=== PATIENT | male | born 1960 | race Caucasian/White ===

== ENCOUNTER 2024-10-15 20:47 | Emergency (ER) | payer OTHER, SELFPAY ==
[2024-10-15 20:49] VITALS: BP 158/96
--- NOTE | 2024-10-16 01:06 | ED.SKININJ ---
HPI-Injury
General
Chief Complaint: Bite
Source: patient
Exam Limitations: none
Time Seen by Provider: 10/15/24 23:49
Nursing documentation reviewed up to this point in time: agreed with
History of Present Illness-Injury
Is this injury a work related problem?: No
Is pt an associate of [facility]?: No
Initial Injury comments:
64-year-old male presenting to the emergency department today with concerns of lesion to the left lower soliman over the past 3 days. Initially had a small amount of pus come out now some redness and warmth to the area no significant pain. Currently
started Augmentin today for dental issue.
Review of Systems
Review of Systems
Allergies reviewed?: Yes
All Other Systems: ROS reviewed and negative except as documented in HPI and ROS
Phy Exam
Physical Exam
Physical Exam:
GENERAL: Alert , in no apparent distress
EYE: pupils equal and reactive
NECK: Supple, no significant adenopathy.
ENT: o/p clr, mmm.
CARDIAC: Regular rate and rhythm .
LUNGS: Clear breath sounds bilaterally, no acute respiratory distress, no wheezes/rales/rhonchi
ABDOMEN: Soft, without focal tenderness, no r/g, no cvat
NEUROLOGICAL: Alert and oriented, no focal neuro deficits
SKIN: Redness swelling to the left lower extremity to the distal anterior soliman roughly 3 cm in diameter. Fluctuant induration to the central portion no spontaneous drainage warm and dry, skin intact.
MUSCULOSKELETAL: No edema, well perfused.
PSYCH: Normal and appropriate interaction.
Course
Vital Signs
Initial and Last Documented VS:
Initial Vital Signs
Temp Pulse Resp BP Pulse Ox
98 F 78 20 158/96 98
10/15/24 20:49 10/15/24 20:49 10/15/24 20:49 10/15/24 20:49 10/15/24 20:49
Last Documented Vital Signs
Temp Pulse Resp BP Pulse Ox
98 F 61 18 160/101 99
10/15/24 20:49 10/16/24 01:07 10/16/24 01:07 10/16/24 01:07 10/16/24 01:07
Procedures
Incision/Drainage/Joint Aspiration
Left Anterior Distal Leg:
Preparation: cleaned with alcohol wipe
Type of procedure: incise and drain
Nature of site: abscess
Description of abscess: greater than 3cm
Loculations broken up: Yes
How much fluid was obtained?: scant amount
Fluid description: purulent
Treatment: left open for drainage
MDM/Problems Addressed
MDM/Problems Addressed:
64-year-old male presenting to the emergency department today with concerns of a lesion to the left lower extremity consistent with a small abscess. This was drained here otherwise tolerated well. Already on antibiotics. Stable for outpatient
manage return precautions given.
*Critical Care Note
Total Time (30-74mins, 75-104mins- exclusive of procedures): Not Applicable
ED Attending Note
-
Portions of this chart may have been created with voice recognition software.� Occasional wrong word or��sound alike� substitutions may have occurred due to the inherent limitations of voice recognition software.
Discharge Plan
Departure
Patient Disposition: Home (Routine Discharge)
Date of Disposition: 10/16/24
Time of Disposition: 01:09
Patient with high blood pressure during this ER visit?: No
Condition: Good
Covid-19: Not Applicable
Discharge Problem:
Abscess of leg
Instructions: Cellulitis (Skin Infection), Child (DC)
Referrals:
Sean Brunson MD [Family Provider, Family Practice]
Activity Restrictions/Additional Instructions:
You came to the emergency department today with concerns of a lesion to your left leg. This is likely an infection. Please take your antibiotic and use warm compresses. Return for any worsening, new or concerning symptoms.
Interventions
Interventions:
*Risk Screen - Suicide Last Done: 10/15/24 20:49
*General Assessment Last Done: 10/15/24 20:49
*Neglect/Abuse Screening Last Done: 10/15/24 20:49
*ED- Fall Risk Assessment Last Done: 10/16/24 00:52
*ED COVID-19 Vaccine History Last Done: 10/16/24 00:52
*Nursing Disposition Last Done: 10/16/24 01:10
ED-Skin Assessment Last Done: 10/16/24 00:52
Discharge Date and Time
Discharge Date/Time: 10/16/24 01:12
Print Language: CZECH
[2024-10-16 01:07] VITALS: BP 160/101
== END 2024-10-16 01:12 | disposition home or self-care (01) ==
LOC: EMR 20:47
PROVIDERS: EMERGENCY PHYSICIAN Student in an Organized Health Care Education/Training Program; FAMILY PHYSICIAN Family Medicine
DX: L02.416 Cutaneous abscess of left lower limb (principal)
CPT/HCPCS: 99283; 10060